=== PATIENT | male | born 1975 | race Caucasian/White ===

== ENCOUNTER → 2017-10-06 | Outpatient (CLI) | payer OTHER ==
[~2017-10-06] MED LIST: OMEG10007 PO; OPTIRAY 320 IV PRN
--- NOTE | 2017-10-06 14:58 | DIAGNOSTIC IMAGING REPORT ---
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 A dose lowering technique was utilized adhering to the principles of ALARA. COMPARISON STUDY: 10/14/2016 FINDINGS: The lung bases are clear. The liver, spleen, gallbladder, pancreas, kidneys, and adrenal glands are within normal limits. No bowel wall thickening or obstruction. The pelvic organs are unremarkable. No suspicious lytic or blastic osseous lesions. Slight rotation of the vascular pedicle of the bowel possibly related to a mobile colon. No evidence for adenopathy within the abdomen or pelvic region. No bowel obstructive characteristics. IMPRESSION: No significant abnormality identified within the abdomen or pelvis. No significant change from the prior study. The above report was generated using voice recognition software. It may contain grammatical, syntax or spelling errors. Electronically signed by: Santiago Hernandez M.D. 10/06/2017 2:56 PM Dictated Date/Time: 10/06/2017 2:53 PM
== END | disposition home or self-care (01) ==
LOC: C.CTS 14:29
PROVIDERS: ATTEND Urology
DX: C62.90 Malignant neoplasm of unspecified testis, unspecified whether descended or undescended (principal)